=== PATIENT | female | born 1940 | race Caucasian/White ===

== ENCOUNTER 2022-11-07 15:00 | Outpatient (CLI) | payer MEDICARE | END 2022-11-07 15:01 | disposition home or self-care (01) | LOC: CSHMAMMO 15:00 | PROVIDERS: ATTEND Internal Medicine Hematology & Oncology | DX: Z12.31 Encounter for screening mammogram for malignant neoplasm of breast (principal); Z98.890 Other specified postprocedural states; Z85.3 Personal history of malignant neoplasm of breast | CPT/HCPCS: 77063; 77067 ==

== ENCOUNTER 2023-12-23 07:09 | Outpatient (CLI) | payer MEDICARE ==
[2023-12-23] MEDS ORDERED: Iopamidol 300 61% 100 ML VIAL FS ONE (09:55)
== END 2023-12-23 07:10 | disposition home or self-care (01) ==
LOC: CSHCT 07:09
PROVIDERS: ATTEND Specialist
DX: E21.3 Hyperparathyroidism, unspecified (principal)
CPT/HCPCS: 70492; 82565

== ENCOUNTER 2024-01-04 17:44 | Emergency (ER) | payer MEDICARE ==
[2024-01-04] MEDS ORDERED: Morphine 4 MG/ML VIAL ONE (18:31)
[2024-01-04] MEDS ORDERED: Ondansetron PF 4 MG/2 ML Vial ONE (18:31)
[2024-01-04] MEDS ORDERED: Ketorolac Tromethamine 30 MG (1 mL) VIAL ONE (19:19)
[2024-01-04 19:48] LABS: Hematocrit 38.4 % (34.9-44.5); Hemoglobin 12.4 g/dL (12.0-15.5); Mean Corpuscular HGB CONC 32.3 g/dL (32.0-36.0); Mean Corpuscular Hemoglobin 28.1 pg (27.0-33.0); Mean Corpuscular Volume 86.9 fl (81.6-98.3); Mean Platelet Volume 10.2 fl (7.4-10.4); Platelet Count 207 10x3/uL (150-450); RBC Distribution Width 14.6 % (11.5-14.5); Red Blood Cell (RBC) Count 4.42 10x6/uL (3.90-5.03); White Blood Cell (WBC) Count 9.5 10x3/uL (3.5-10.5)
[2024-01-04 19:54] LABS: ALT (SGPT) 12 U/L (8-55); AST (SGOT) 17 U/L (5-34); Albumin 4.2 g/dL (3.4-4.8); Alkaline Phosphatase 95 U/L (40-110); Anion Gap 13 mmol/L (10-20); BUN (Urea Nitrogen) 13 mg/dL (9.8-20.1); Bilirubin, Total 0.5 mg/dL (0.2-1.2); Calc. Creatinine Clearance 0 mL/min (70-130); Calcium 9.4 mg/dL (7.8-10.44); Carbon Dioxide 26 mmol/L (23-31); Chloride 105 mmol/L (98-107); Estimated GFR 69; Globulin 2.8 g/dL (2.4-3.5); Glucose 100 mg/dL (83-110); Lipase 33 U/L (8-78); Potassium 3.5 mmol/L (3.5-5.1); Sodium 140 mmol/L (136-145)
[2024-01-04 20:00] LABS: Bilirubin Neg (Negative); Blood, Urine 150 (Negative); Clarity Clear (Clear); Glucose, Urine (Dipstick) Normal (Negative); Ketone, Urine Negative (Negative); Leukocyte 500 (Negative); Nitrite Negative (Negative); Protein, Urine (Dipstick) 30 mg/dl (Neg-Trace); Urobilinogen Normal mg/dL (Less than 2)
[2024-01-04 20:16] LABS: Eosinophils 5 % (0-10); Lymphocytes 48 % (21-51); Monocytes 7 % (0-10); Neutrophil 39 % (42-75)
[2024-01-04 20:17] LABS: Platelet Adequacy Comment Appears Adequate; RBC Morph Comment Within Normal Limits
[2024-01-04 20:30] LABS: MDiff Complete? YES
[2024-01-04 20:40] LABS: Bacteria/HPF 2+ HPF (None Seen); CAUTI Indications for Culture Pelvic or flank pain; Calcium Oxalate Crystals 1+ HPF (None Seen); Squamous Epithelial 0-3 HPF (0-3); Urine Culture Reflex No No
[2024-01-04] MEDS ORDERED: LevoFLOXacin 750 MG TAB ONE (21:16)
== END 2024-01-04 21:25 | disposition home or self-care (01) ==
LOC: CSHERS 17:44
DX: N13.2 Hydronephrosis with renal and ureteral calculous obstruction (principal); N39.0 Urinary tract infection, site not specified; I10 Essential (primary) hypertension
CPT/HCPCS: 36415; 74176; 80053; 81001; 83690; 85025; 96374; 96375; J1885; J2270; J2405

== ENCOUNTER 2024-05-09 08:39 | Inpatient (IN) | payer MEDICARE ==
[2024-05-09] MEDS ORDERED: HYDROcodone/Acetaminophen 5/325 mg Tablet ONE (09:27)
[2024-05-09] MEDS ORDERED: Acetaminophen 325 MG TAB PO PRN (12:13)
[2024-05-09] MEDS ORDERED: HYDROcodone/Acetaminophen 10/325 mg Tablet PO PRN (12:13)
[2024-05-09 12:32] LABS: #Basophils 0.04 10x3/uL (0.0-0.2); #Eosinphils 0.16 10x3/uL (0.0-0.5); #Monocytes 0.49 10x3/uL (0.0-1.1); #Neutrophils 5.09 10x3/uL (1.5-8.4); %Basophils 0.5 % (0.0-2.0); %Eosinophils 1.9 % (0.0-6.0); %Lymphocytes 29.7 % (18.0-47.0); %Monocytes 5.9 % (0.0-10.0); %Neutrophils 61.8 % (40.0-75.0); Hematocrit 36.2 % (34.9-44.5); Hemoglobin 11.9 g/dL (12.0-15.5); Mean Corpuscular HGB CONC 32.9 g/dL (32.0-36.0); Mean Corpuscular Volume 88.3 fL (81.6-98.3); Mean Platelet Volume 9.7 fL (7.4-10.4); Platelet Count 185 10x3/uL (150-450); RBC Distribution Width 13.8 % (11.5-14.5); White Blood Cell (WBC) Count 8.3 10x3/uL (3.5-10.5)
[2024-05-09 12:43] LABS: Anion Gap 14 mmol/L (10-20); BUN (Urea Nitrogen) 14 mg/dL (9.8-20.1); Calc. Creatinine Clearance 0 mL/min (70-130); Calcium 9.4 mg/dL (7.8-10.44); Carbon Dioxide 25 mmol/L (23-31); Chloride 104 mmol/L (98-107); Estimated GFR 72; Glucose 106 mg/dL (83-110); Potassium 4.5 mmol/L (3.5-5.1); Sodium 138 mmol/L (136-145)
[2024-05-09 13:55] VITALS: BMI 29.9
[2024-05-09] MEDS: HYDROcodone/Acetaminophen 10/325 mg Tablet PO PRN (14:06)
[2024-05-09] MEDS: Morphine 2 MG/ML VIAL SLOW IVP PRN (17:16)
[2024-05-09] MEDS: HYDROcodone/Acetaminophen 5/325 mg Tablet PO PRN ×2 (18:37→23:42)
[2024-05-09] MEDS: Lisinopril 20 MG TAB PO SCH (20:56)
[2024-05-09] MEDS: Lidocaine 4% Patch TD SCH (20:57)
[2024-05-09] MEDS: Cyclobenzaprine 10 MG TAB PO SCH (20:57)
[2024-05-09] MEDS ORDERED: Famotidine 20 MG TAB PO SCH (21:00)
[2024-05-10 03:51] LABS: #Basophils 0.03 10x3/uL (0.0-0.2); #Eosinphils 0.38 10x3/uL (0.0-0.5); #Monocytes 0.55 10x3/uL (0.0-1.1); #Neutrophils 3.19 10x3/uL (1.5-8.4); %Basophils 0.5 % (0.0-2.0); %Eosinophils 6.9 % (0.0-6.0); %Lymphocytes 24.2 % (18.0-47.0); %Neutrophils 58.2 % (40.0-75.0); Anion Gap 13 mmol/L (10-20); BUN (Urea Nitrogen) 15 mg/dL (9.8-20.1); Calc. Creatinine Clearance 66 mL/min (70-130); Carbon Dioxide 26 mmol/L (23-31); Chloride 103 mmol/L (98-107); Estimated GFR 75; Glucose 113 mg/dL (83-110); Hematocrit 33.7 % (34.9-44.5); Hemoglobin 10.7 g/dL (12.0-15.5); Mean Corpuscular HGB CONC 31.8 g/dL (32.0-36.0); Mean Corpuscular Volume 88.2 fL (81.6-98.3); Platelet Count 153 10x3/uL (150-450); Potassium 4.5 mmol/L (3.5-5.1); RBC Distribution Width 13.9 % (11.5-14.5); Red Blood Cell (RBC) Count 3.82 10x6/uL (3.90-5.03); Sodium 137 mmol/L (136-145); White Blood Cell (WBC) Count 5.5 10x3/uL (3.5-10.5)
[2024-05-10] MEDS: Pantoprazole DR 40 MG TAB PO SCH (08:09)
[2024-05-10] MEDS: Escitalopram Oxalate 10 mg Tablet PO SCH (09:39)
[2024-05-10] MEDS: Amlodipine 5 MG TAB PO SCH (09:39)
[2024-05-10] MEDS: Cholecalciferol 1,000 UNITS (25 MCG) TAB PO SCH (09:39)
[2024-05-10] MEDS: Enoxaparin 40 MG (0.4 mL) SYRINGE SC SCH (09:39)
[2024-05-10] MEDS: Simvastatin 10 MG TAB PO SCH (09:39)
[2024-05-10] MEDS: Ascorbic Acid 500 mg Chewable Tablet PO SCH (09:39)
[2024-05-10] MEDS: LIDOCAINE Patch Removal TOP SCH (09:40)
[2024-05-11] MEDS: Senokot S 8.6-50 MG TAB PO PRN (03:54)
[2024-05-11] MEDS ORDERED: Docusate 100 MG CAP PO PRN (07:31)
[2024-05-11] MEDS: Polyethylene Glycol 3350 17 GM Packet PO SCH (08:34)
[2024-05-12] MEDS ORDERED: Morphine IR Tab 15 MG TAB PO PRN (07:23)
[2024-05-12] MEDS ORDERED: HYDROcodone/Acetaminophen 10/325 mg Tablet PO PRN (07:26)
[2024-05-12] MEDS ORDERED: HYDROcodone/Acetaminophen 5/325 mg Tablet PO PRN (07:26)
[2024-05-12] MEDS ORDERED: Eucerin (Mineral Oil/Petrolatum,White) 30 gm Jar TOP PRN (08:31)
[2024-05-12] MEDS: Ibuprofen 400 MG TAB PO SCH (08:50)
[2024-05-12] MEDS: Naloxegol 12.5 MG TAB PO SCH (08:51)
[2024-05-12] MEDS: Icosapent Ethyl 1 GM CAPSULE PO SCH (09:00)
[2024-05-12] MEDS: Acetaminophen 500 MG TAB PO SCH (14:05)
[2024-05-12 15:09] VITALS: BP 98/70; TEMP 98.1
[2024-05-12] MEDS ORDERED: Estradiol 0.01% Vaginal Cream 42.5 gm Tube VAG SCH (21:00)
== END 2024-05-12 18:46 | DRG 563 ==
LOC: CSHERS 08:39 → CSHTELE 12:13 → OBSVTOIN 05-12 08:50
PROVIDERS: ADMIT Internal Medicine; ATTEND Family Medicine
PROC: 4A0D7BZ Measurement of Urinary Pressure, Via Natural or Artificial Opening (ICD-10-PCS; principal; 2024-05-10)
DX: S83.92XA Sprain of unspecified site of left knee, initial encounter (principal); I10 Essential (primary) hypertension; R33.9 Retention of urine, unspecified; I48.91 Unspecified atrial fibrillation; Z79.82 Long term (current) use of aspirin; Z79.899 Other long term (current) drug therapy; W18.30XA Fall on same level, unspecified, initial encounter; M19.90 Unspecified osteoarthritis, unspecified site; K21.9 Gastro-esophageal reflux disease without esophagitis; Z98.890 Other specified postprocedural states; E78.00 Pure hypercholesterolemia, unspecified; Z96.653 Presence of artificial knee joint, bilateral; Z90.49 Acquired absence of other specified parts of digestive tract; Z90.710 Acquired absence of both cervix and uterus
CPT/HCPCS: 36415; 51798; 80048; 85025; 96372; 96374; 96376; G0378; J1650; J2272

== ENCOUNTER 2024-11-19 09:47 | Outpatient (CLI) | payer MEDICARE | END 2024-11-19 09:48 | disposition home or self-care (01) | LOC: CSHMAMMO 09:47 | PROVIDERS: ATTEND Internal Medicine Hematology & Oncology | DX: Z12.31 Encounter for screening mammogram for malignant neoplasm of breast (principal); Z85.3 Personal history of malignant neoplasm of breast; Z98.890 Other specified postprocedural states | CPT/HCPCS: 77063; 77067 ==

== ENCOUNTER 2025-01-07 14:06 | Outpatient (CLI) | payer MEDICARE | END 2025-01-07 14:07 | disposition home or self-care (01) | LOC: CSHULT 14:06 | PROVIDERS: ATTEND Urology | DX: N20.0 Calculus of kidney (principal); Q63.2 Ectopic kidney; R35.0 Frequency of micturition; Z87.442 Personal history of urinary calculi; R79.89 Other specified abnormal findings of blood chemistry; R14.0 Abdominal distension (gaseous); K76.89 Other specified diseases of liver | CPT/HCPCS: 74018; 76770 ==